=== PATIENT | male | born 1995 | race Caucasian/White ===

== ENCOUNTER 2016-11-29 17:39 | Emergency (ER) | payer SELFPAY ==
[~2016-11-29] VITALS: Ht 177.8 cm; Wt 68.2 kg
[~2016-11-29 17:39] MED LIST: NOHOMEMEDS
[2016-11-29 17:47] VITALS: BP 141/89
[2016-11-29 19:41] LABS: ADD MIUA? NO; BILIRUBIN NEGATIVE; BLOOD NEGATIVE; COLOR YELLOW ((YELLOW)); GLUCOSE (STRIP) NEGATIVE; KETONES NEGATIVE; LEUKOCYTES NEGATIVE; NITRITE NEGATIVE; PROTEIN (STRIP) 30; SPECIFIC GRAVITY 1.029 (1.000-1.030); UCUL ADDED? NO; UROBILINOGEN 0.2 MG/DL (0.2-1.0)
[2016-11-29] MEDS ORDERED: NAPROSYN500 MG PO (19:58)
== END 2016-11-29 20:11 | disposition home or self-care (01) ==
LOC: EME 17:39
PROVIDERS: Physician Assistant
DX: S33.9XXA Sprain of unspecified parts of lumbar spine and pelvis, initial encounter (principal); W16.92XA Jumping or diving into unspecified water causing other injury, initial encounter; Y93.11 Activity, swimming; F17.200 Nicotine dependence, unspecified, uncomplicated; M41.9 Scoliosis, unspecified
CPT/HCPCS: 71020; 72100; 81003; 99281; 99284